=== PATIENT | male | born 1980 ===

== ENCOUNTER 2022-08-05 15:00 | Emergency (ER) | payer OTHER ==
[~2022-08-05] VITALS: Ht 162.6 cm; Wt 90.7 kg
[2022-08-05] MEDS ORDERED: MUPIROCIN TOP (17:21)
== END 2022-08-05 18:07 | disposition home or self-care (01) ==
LOC: ER 15:00
DX: T20.20XA Burn of second degree of head, face, and neck, unspecified site, initial encounter (principal); T23.202A Burn of second degree of left hand, unspecified site, initial encounter; T24.201A Burn of second degree of unspecified site of right lower limb, except ankle and foot, initial encounter; X08.8XXA Exposure to other specified smoke, fire and flames, initial encounter
CPT/HCPCS: A9270; J1885